=== PATIENT | male | born 1970 | race African-American/Black ===

== ENCOUNTER 2016-11-28 17:11 | Emergency (ER) | payer MEDICAID, OTHER ==
[~2016-11-28] VITALS: Ht 175.3 cm; Wt 87.0 kg
[~2016-11-28 17:11] MED LIST: KEPP500 PO
[2016-11-28 17:22] VITALS: BP 143/92
== END 2016-11-28 21:00 | disposition left against medical advice (07) ==
LOC: ER 20:32
DX: Z53.21 Procedure and treatment not carried out due to patient leaving prior to being seen by health care provider (principal)

== ENCOUNTER 2018-03-26 08:33 | Emergency (ER) | payer MEDICAID ==
[~2018-03-26] VITALS: Ht 185.4 cm; Wt 100.0 kg
[2018-03-26] MEDS ORDERED: LEVETIRACETAM 500MG TABLET PO ONE (09:00)
[2018-03-26 09:39] LABS: CLARITY URINE CLOUDY (CLEAR); COLOR URINE YELLOW (YELLOW); KETONES URINE NEGATIVE (NEGATIVE); LEUKOCYTE ESTERASE URINE TRACE (NEGATIVE); NITRITE URINE NEGATIVE (NEGATIVE); OCCULT BLOOD URINE NEGATIVE (NEGATIVE); PROTEIN URINE TRACE (NEGATIVE); SPECIFIC GRAVITY URINE 1.012 (1.005-1.030); UROBILINOGEN URINE 0.2 E.U./dL (0.2-1.0)
[2018-03-26 09:40] LABS: BASOPHILS % 0.5 % (0.0-2.0); HEMATOCRIT. 40.2 % (42.0-52.0); HEMOGLOBIN. 13.6 g/dL (14.0-18.0); LYMPHOCYTES % 11.3 % (20.0-50.0); MEAN CORPUSCULAR HEMOGLOBIN 32.3 pg (28.0-32.0); MEAN CORPUSCULAR VOLUME 95.3 fL (80.0-94.0); MEAN PLATELET VOLUME 8.5 fl (7.4-10.4); MONOCYTES % 8.5 % (2.0-8.0); NEUTROPHILS % 77.7 % (40.0-76.0); PLATELET 164 x1000/uL (130-400); RED BLOOD CELL COUNT 4.22 mill/uL (4.7-6.1); RED CELL DISTRIBUTION WIDTH 14.5 % (11.6-14.6)
[2018-03-26 10:10] LABS: *BENZODIAZEPINES SCREEN URINE NEGATIVE (NEGATIVE); *COCAINE SCREEN URINE PRESUMTIVE POSITIVE (NEGATIVE); CANNABINOID URINE SCREEN NEGATIVE (NEGATIVE); METHADONE URINE SCREEN NEGATIVE (NEGATIVE); OPIATES URINE SCREEN NEGATIVE (NEGATIVE); PHENCYCLIDINE URINE SCREEN NEGATIVE (NEGATIVE)
[2018-03-26 11:00] LABS: *AMPHETAMINES SCREEN URINE PRESUMTIVE POSITIVE (NEGATIVE); *BARBITURATES SCREEN URINE NEGATIVE (NEGATIVE)
[2018-03-26 11:01] LABS: PROTHROMBIN TIME 10.6 sec (9.4-11.6)
[2018-03-26 11:21] LABS: CHLORIDE 107 mEq/L (98-107)
[2018-03-26 11:25] LABS: ETHANOL BLOOD < 10 mg/dL
[2018-03-26] MEDS ORDERED: LORAZEPAM 2MG/ML CPJ ONE (11:51)
[2018-03-26 22:58] VITALS: BP 123/72
== END 2018-03-26 23:05 | disposition home or self-care (01) ==
LOC: ER 08:42
DX: R56.9 Unspecified convulsions (principal); F17.200 Nicotine dependence, unspecified, uncomplicated; F15.90 Other stimulant use, unspecified, uncomplicated; R79.1 Abnormal coagulation profile; F12.90 Cannabis use, unspecified, uncomplicated; Z88.0 Allergy status to penicillin; Z79.899 Other long term (current) drug therapy
CPT/HCPCS: 36415; 80053; 80305; 81003; 82542; 85025; 85610; 93970; 99285; G0482; J2060; Z7610